=== PATIENT | male | born 1980 | race African-American/Black ===

== ENCOUNTER 2017-02-07 13:36 | Emergency (ER) | payer MEDICAID ==
[~2017-02-07] VITALS: Ht 180.3 cm; Wt 75.0 kg
[2017-02-07 13:38] VITALS: BP 125/73
[2017-02-07] MEDS ORDERED: KETOROLAC 60MG/2ML VIAL IM STA (13:53)
== END 2017-02-07 16:30 | disposition home or self-care (01) ==
LOC: ER 15:05
DX: R07.9 Chest pain, unspecified (principal); G40.909 Epilepsy, unspecified, not intractable, without status epilepticus; Z88.6 Allergy status to analgesic agent; Z88.8 Allergy status to other drugs, medicaments and biological substances
CPT/HCPCS: 71010; 93005; 96372; 99284; J1885

== ENCOUNTER 2017-07-18 11:57 | Emergency (ER) | payer MEDICAID ==
[~2017-07-18] VITALS: Ht 180.3 cm; Wt 73.0 kg
[2017-07-18] MEDS ORDERED: [UNRECOGNIZED DRUG - OTHER] (12:00)
[2017-07-18] MEDS ORDERED: LEVE1000 PO (12:00)
[2017-07-18 16:17] VITALS: BP 106/75
[2017-07-18] MEDS ORDERED: CEPHALEXIN 500MG CAPSULE PO ONE (17:00)
== END 2017-07-18 17:08 | disposition left against medical advice (07) ==
LOC: ER 13:16
DX: L03.317 Cellulitis of buttock (principal); E86.0 Dehydration; K59.00 Constipation, unspecified; K62.89 Other specified diseases of anus and rectum; R56.9 Unspecified convulsions; F41.9 Anxiety disorder, unspecified; F17.200 Nicotine dependence, unspecified, uncomplicated; Z88.5 Allergy status to narcotic agent; Z88.8 Allergy status to other drugs, medicaments and biological substances
CPT/HCPCS: 99283

== ENCOUNTER 2020-10-21 19:41 | Emergency (ER) | payer MEDICAID ==
[~2020-10-21] VITALS: Ht 182.9 cm; Wt 70.0 kg
[~2020-10-21 19:41] MED LIST: LEVE1000 PO; [UNRECOGNIZED DRUG - OTHER]
[2020-10-21 20:08] VITALS: BP 128/74
== END 2020-10-21 20:30 | disposition left against medical advice (07) ==
LOC: ER 19:41
DX: Z53.21 Procedure and treatment not carried out due to patient leaving prior to being seen by health care provider (principal)

== ENCOUNTER 2022-02-21 14:20 | Emergency (ER) | payer MEDICAID ==
[~2022-02-21] VITALS: Ht 180.3 cm; Wt 73.0 kg
[2022-02-21] MEDS ORDERED: HYDROCODONE/ACETAMINOPHEN 5/325MG TABLET PO ONE (15:00)
[2022-02-21] MEDS ORDERED: CEPHALEXIN 250MG CAPSULE PO ONE (15:00)
[2022-02-21 15:14] LABS: HEMOGLOBIN. 13.1 g/dL (14.0-18.0); MEAN CORPUSCULAR VOLUME 83.5 fL (80.0-94.0); MEAN PLATELET VOLUME 8.1 fl (7.4-10.4); PLATELET 277 x1000/uL (130-400); RED BLOOD CELL COUNT 4.67 mill/uL (4.7-6.1); RED CELL DISTRIBUTION WIDTH 14.5 % (11.6-14.6)
[2022-02-21 15:21] LABS: CHLORIDE 107 mEq/L (98-107)
[2022-02-21 15:26] VITALS: BP 100/69
[2022-02-21] MEDS ORDERED: HYDR-4001 MT (16:26)
[2022-02-21] MEDS ORDERED: CEPH500C2 MT (16:26)
[2022-02-21] MEDS ORDERED: IBUP-2029 MT (16:26)
[2022-02-21 17:17] LABS: PLATELET ESTIMATE NORMAL
== END 2022-02-21 16:58 | disposition home or self-care (01) ==
LOC: ER 14:20
DX: L03.116 Cellulitis of left lower limb (principal); G40.909 Epilepsy, unspecified, not intractable, without status epilepticus; Z87.898 Personal history of other specified conditions; Z21 Asymptomatic human immunodeficiency virus [HIV] infection status; Z88.5 Allergy status to narcotic agent; Z88.8 Allergy status to other drugs, medicaments and biological substances
CPT/HCPCS: 36415; 80053; 85025; 93971; 99284

== ENCOUNTER 2022-06-09 18:06 | Emergency (ER) | payer MEDICAID ==
[~2022-06-09] VITALS: Ht 180.3 cm; Wt 77.0 kg
[~2022-06-09 18:06] MED LIST changes: +CEPH500C2 MT; +HYDR-4001 MT; +IBUP-2029 MT
[2022-06-09 18:23] VITALS: BP 110/80
== END 2022-06-09 22:34 | disposition left against medical advice (07) ==
LOC: ER 18:06
DX: Z53.21 Procedure and treatment not carried out due to patient leaving prior to being seen by health care provider (principal)